=== PATIENT | female | born 1960 | race Caucasian/White ===

== ENCOUNTER 2018-07-13 11:21 | Emergency (ER) | payer OTHER ==
[~2018-07-13] VITALS: Ht 152.4 cm; Wt 70.3 kg
[2018-07-13] MEDS ORDERED: LIPITOR80 MG PO (13:14)
[2018-07-13] MEDS ORDERED: BENZONATATE100 MG PO (13:15)
[2018-07-13] MEDS ORDERED: ADDERALL 20 MG20 MG PO (13:15)
[2018-07-13] MEDS ORDERED: CORTEF10 MG PO (13:16)
[2018-07-13] MEDS ORDERED: PROZAC20 MG PO (13:16)
[2018-07-13] MEDS ORDERED: GLIMEPIRIDE4 MG PO (13:16)
[2018-07-13] MEDS ORDERED: LORATIDINE 10 M10 M1 PO (13:17)
[2018-07-13] MEDS ORDERED: HYDROCHLOROTH12.5 M1 PO (13:17)
[2018-07-13] MEDS ORDERED: SYNTHROID75 MCG PO (13:17)
[2018-07-13] MEDS ORDERED: LISINOPRIL10 MG PO (13:17)
[2018-07-13] MEDS ORDERED: LAMOTRIGINE150 MG PO (13:17)
[2018-07-13] MEDS ORDERED: MULTIVITAMINS1 EAC7 PO (13:19)
[2018-07-13] MEDS ORDERED: GLUCOPHAGE XR500 MG PO (13:19)
[2018-07-13] MEDS ORDERED: FLOMAX0.4 MG PO (13:20)
[2018-07-13 13:23] LABS: ABSOLUTE BASOPHILS 0.1 thou/uL (0.0-0.2); ABSOLUTE EOSINOPHILS 0.3 thou/uL (0.0-0.7); ABSOLUTE LYMPHOCYTES 1.6 thou/uL (0.8-5.3); ABSOLUTE MONOCYTES 0.7 thou/uL (0.0-1.2); ABSOLUTE NEUTROPHILS 7.7 thou/uL (1.6-8.1); BASOPHILS 0.8 %; EOSINOPHILS 2.6 %; HEMATOCRIT 38.9 % (37.0-47.0); HEMOGLOBIN 13.3 gm/dL (12.0-15.0); LYMPHOCYTES 15.7 %; MCH 33.6 pg (26.0-34.0); MCHC 34.2 g/dL (28.0-37.0); MCV 98.4 fL (80.0-100.0); MONOCYTES 7.1 %; MPV 7.4 fl. (7.2-11.1); NUCLEATED RBCS 0 /100WBC; PLATELET COUNT* 336 thou/uL (150-400); POLYS 73.8 %; RBC 3.95 mil/uL (4.20-5.00); RDW-CV 13.3 % (10.5-14.5); WBC 10.4 thou/uL (4.0-11.0)
[2018-07-13 13:35] LABS: CALCIUM 9.8 mg/dL (8.5-10.1); CREATININE 0.9 mg/dL (0.6-1.3); POTASSIUM 4.2 mmol/L (3.5-5.1)
[2018-07-13 13:40] LABS: ALBUMIN 3.4 g/dL (3.4-5.0); TOTAL BILIRUBIN 0.4 mg/dL (<0.1-1.0); TOTAL PROTEIN 7.1 g/dL (6.4-8.2)
[2018-07-13 14:15] VITALS: BP 114/67
== END 2018-07-13 14:14 | disposition home or self-care (01) ==
LOC: M.ERS 11:21
PROVIDERS: Family Medicine
DX: R53.1 Weakness (principal); Z88.1 Allergy status to other antibiotic agents